=== PATIENT | male | born 1960 | race Caucasian/White ===

== ENCOUNTER → 2018-09-05 | Outpatient (CLI) | payer BC | LOC: M.ULTRA 08-26 11:40 | DX: Z13.6 Encounter for screening for cardiovascular disorders (principal); Z82.49 Family history of ischemic heart disease and other diseases of the circulatory system ==

== ENCOUNTER → 2018-09-26 | Outpatient (CLI) | payer BC ==
--- NOTE | 2018-09-26 13:59 | 2DMMODE ---
[place] [address] 2 D/M-MODE ECHOCARDIOGRAM Name: EILEEN XIE Room: [facility]#: [id number] Admission: 09/26/18 Attend Phys: Elyssa Burt Discharge: Date of : 64 Date of Service: 09/26/18 1358 Report #: [id number] THIS REPORT FOR: //name// APPROVED REPORT Study performed: 09/26/2018 08:02:43 EXAM: Comprehensive 2D, Doppler, and color-flow Echocardiogram Patient Location: Out-Patient BSA: 2.60 HR: 67 bpm BP: 120/74 mmHg Other Information Study Quality: Fair Indications Enlarged Aorta 2D Dimensions IVSd: 13.42 (7-11mm) LVOT Diam: 22.19 (18-24mm) LVDd: 57.10 mm PWd: 10.72 (7-11mm) Ascending Ao: 35.85 (22-36mm) LVDs: 28.76 (25-40mm) Aortic Root: 32.64 mm Volumes Left Atrial Volume (Systole) LA ESV Index: 12.90 mL/m2 Aortic Valve AoV Peak Brian.: 1.39 m/s AO Peak Gr.: 7.77 mmHg LVOT Max P.31 mmHg AO Mean Gr.: 4.27 mmHg LVOT Mean P.40 mmHg LVOT Max V: 1.15 m/s AO V2 VTI: 28.57 cm LVOT Mean V: 0.70 m/s JOSE (VTI): 3.33 cm2 LVOT V1 VTI: 24.57 cm Mitral Valve E/A Ratio: 1.41 MV Decel. Time: 198.91 ms MV E Max Brian.: 0.74 m/s MV PHT: 57.68 ms MVA (PHT): 3.81 cm2 [place] [address] 2 D/M-MODE ECHOCARDIOGRAM Name: EILEEN XIE Room: [facility]#: [id number] Admission: 09/26/18 Attend Phys: Elyssa Burt Discharge: Date of : 64 Date of Service: 09/26/18 1358 Report #: [id number] TDI E/Lateral E': 9.25 E/Medial E': 9.25 Medial E' Brian.: 0.08 m/s Lateral E' Brian.: 0.08 m/s Pulmonary Valve PV Peak Brian.: 1.31 m/s PV Peak Gr.: 6.87 mmHg Left Ventricle The left ventricle is normal size. There is normal LV segmental wall motion. Borderline concentric left ventricular hypertrophy. Left ventricular systolic function is normal. The left ventricular ejection fraction is within the normal range. LVEF is 60-65%. The left ventricular diastolic function is normal. Right Ventricle The right ventricle is normal size. The right ventricular systolic function is normal. Atria The left atrium size is normal. The right atrium size is normal. Aortic Valve The aortic valve is normal in structure. No aortic regurgitation is present. There is no aortic valvular stenosis. Mitral Valve The mitral valve is normal in structure. There is no mitral valve regurgitation noted. No evidence of mitral valve stenosis. Tricuspid Valve The tricuspid valve is normal in structure. There is no tricuspid valve regurgitation noted. Pulmonic Valve The pulmonary valve is normal in structure. There is no pulmonic valvular regurgitation. Great Vessels The aortic root is normal in size. IVC is normal in size and collapses >50% with inspiration. Pericardium There is no [place] [address] 2 D/M-MODE ECHOCARDIOGRAM Name: EILEEN XIE Room: [facility]#: [id number] Admission: 09/26/18 Attend Phys: Elyssa Burt Discharge: Date of : 64 Date of Service: 09/26/18 1358 Report #: [id number] <Conclusion> The left ventricle is normal size. Borderline concentric left ventricular hypertrophy. Left ventricular systolic function is normal. The left ventricular ejection fraction is within the normal range. LVEF is 60-65%. The left ventricular diastolic function is normal. The right ventricle is normal size. The left atrium size is normal. The aortic valve is normal in structure. The mitral valve is normal in structure. The tricuspid valve is normal in structure. IVC is normal in size and collapses >50% with inspiration. There is no pericardial effusion. There is normal LV segmental wall motion. <ELECTRONICALLY SIGNED> By: Rudolph Baker MD, FACC 09/26/18 1358 1358 1358 Rudolph Baker MD, FACC /INF
== END ==
LOC: M.CRD 07:49
DX: I77.89 Other specified disorders of arteries and arterioles (principal)

== ENCOUNTER → 2020-06-07 | Outpatient (CLI) | payer OTHER | LOC: M.MRI 08:05 | PROVIDERS: ATTEND Family Medicine | DX: M76.22 Iliac crest spur, left hip (principal); R51.9 Headache, unspecified; G31.9 Degenerative disease of nervous system, unspecified ==